=== PATIENT | female | born 1970 | race Two or more races ===

== ENCOUNTER 2020-04-29 23:00 | Emergency (ER) | payer OTHER ==
[~2020-04-29] VITALS: Ht 154.9 cm; Wt 65.3 kg
[2020-04-29] MEDS ORDERED: XARELTO20 MG ×2 (23:43→23:44)
[2020-04-30] MEDS ORDERED: MEDROLPACK PO (03:18)
[2020-04-30] MEDS ORDERED: NORFLEX100MG PO (03:18)
== END 2020-04-30 03:49 | disposition home or self-care (01) ==
LOC: ER 23:00
DX: M54.5 Low back pain (principal); R10.31 Right lower quadrant pain